=== PATIENT | male | born 1950 | race Caucasian/White ===

== ENCOUNTER 2019-04-05 11:41 | Emergency (ER) | payer MEDICARE, OTHER ==
[~2019-04-05] VITALS: Ht 167.6 cm; Wt 65.0 kg
[2019-04-05 11:52] VITALS: Ht 167.6 cm; Wt 65.0 kg
[2019-04-05] MEDS ORDERED: SOD CHLORIDE 0.9% 1,000 ML IV STA (11:58)
[2019-04-05] MEDS ORDERED: KETOROLAC 15 MG INJ IV STA (11:58)
[2019-04-05] MEDS ORDERED: LORAZEPAM 0.5 MG TAB PO ONE (12:00)
--- NOTE | 2019-04-05 12:07 | ERD ---
ER Documentation Chief Complaint Chief Complaint mid sternal chest pain started today HPI This is a 68-year-old man brought in by EMS from home with multiple complaints including sharp nonexertional nonradiating chest pain, palpitations, dizziness beginning at about 9 AM this morning. He states he has these symptoms about once per week for the last few years and states he feels very anxious. He denies suicidal homicidal ideation. He states he had echocardiogram about 5 to 6 months ago which was normal. Patient denies history of [place]. He has had no loss of consciousness, no fevers or chills, no vomiting or diarrhea, no headache or blurry vision. Patient was transported here by EMS without further complications ROS All systems reviewed and are negative except as per history of present illness. Medications Home Meds Active Scripts Ibuprofen* (Motrin*) 600 Mg Tab, 600 MG PO Q8 PRN for PAIN AND/OR INFLAMMATION, #30 TAB Prov:WILLIAMS NERI MD 04/05/19 Lorazepam* (Ativan*) 0.5 Mg Tablet, 0.5 MG PO Q8H PRN for ANXIETY, #10 TAB Prov:WILLIAMS NERI MD 04/05/19 Reported Medications Amlodipine Besylate* (Amlodipine Besylate*) 10 Mg Tablet, 1 TAB ORAL DAILY 04/05/19 Hydrochlorothiazide* (Hydrochlorothiazide*) 25 Mg Tab, 1 TAB ORAL DAILY 04/05/19 Ezetimibe (Ezetimibe) 10 Mg Tablet, 1 TAB ORAL QHS 04/05/19 Allergies Allergies: Coded Allergies: No Known Allergy (Unverified , 04/05/19) PMhx/Soc Hypertension FmHx Family History: No diabetes Physical Exam Vitals Vital Signs Date Temp Pulse Resp B/P (MAP) Pulse Ox O2 O2 Flow FiO2 Time Delivery Rate 04/05/19 97.8 65 18 147/80 98 11:52 (102) Physical Exam GENERAL: Well-developed, well-nourished, appears dehydrated, anxious, afebrile HEENT: Dry mucous membranes, pink conjunctiva, no cervical spine tenderness or step-off deformities, no goiter, no jaundice or icterus, extraocular movements intact without pain. No submandibular induration, and no pharyngeal erythema NEURO: Alert and oriented 3, cranial nerves II through XII intact bilaterally, pupils equal round reactive to light, no focal deficits or facial asymmetry, sensation intact distally Strength 5/5 in upper and lower extremities bilaterally CARDIAC: Regular rate and rhythm, no murmurs rubs or gallops LUNGS: Clear bilaterally no wheezing crackles or stridor EXTREMITIES: No clubbing cyanosis or edema, calves are bilaterally symmetrical, no Homans sign, no popliteal cord sign. Distal pulses equal and bilateral PSYCH: Normal affect without agitation or irritability Result Diagram: 04/05/19 1207 04/05/19 1207 Results 24 hrs Laboratory Tests Test 04/05/19 12:07 White Blood Count 10.1 10^3/ul Red Blood Count 5.18 10^6/ul Hemoglobin 15.3 g/dl Hematocrit 44.9 % Mean Corpuscular Volume 86.7 fl Mean Corpuscular Hemoglobin 29.5 pg Mean Corpuscular Hemoglobin Concent 34.1 g/dl Red Cell Distribution Width 14.2 % Platelet Count 275 10^3/UL Mean Platelet Volume 10.4 fl Immature Granulocytes % 0.300 % Neutrophils % 70.3 % Lymphocytes % 20.8 % Monocytes % 7.2 % Eosinophils % 1.1 % Basophils % 0.3 % Nucleated Red Blood Cells % 0.0 /100WBC Immature Granulocytes # 0.030 10^3/ul Neutrophils # 7.1 10^3/ul Lymphocytes # 2.1 10^3/ul Monocytes # 0.7 10^3/ul Eosinophils # 0.1 10^3/ul Basophils # 0.0 10^3/ul Nucleated Red Blood Cells # 0.0 10^3/ul Sodium Level 139 mmol/L Potassium Level 3.0 mmol/L Chloride Level 107 mmol/L Carbon Dioxide Level 25 mmol/L Anion Gap 7 Blood Urea Nitrogen 19 mg/dl Creatinine 1.09 mg/dl Est Glomerular Filtrat Rate mL/min > 60 mL/min Glucose Level 116 mg/dl Calcium Level 9.3 mg/dl Total Bilirubin 0.8 mg/dl Direct Bilirubin 0.00 mg/dl Indirect Bilirubin 0.8 mg/dl Aspartate Amino Transf (AST/SGOT) 17 IU/L Alanine Aminotransferase (ALT/SGPT) 18 IU/L Alkaline Phosphatase 60 IU/L Troponin I < 0.012 ng/ml Total Protein 7.3 g/dl Albumin 3.9 g/dl Globulin 3.40 g/dl Albumin/Globulin Ratio 1.14 Lipase 47 U/L Current Medications Medications Dose Sig/Ilan Start Time Status Last (Trade) Ordered Route PRN Stop Time Admin Dose Reason Admin Sodium 1,000 ml @ Q1H STAT 04/05/19 04/05/19 Chloride 1,000 mls/hr IV 11:58 12:31 04/05/19 12:57 Ketorolac 15 mg ONCE STAT 04/05/19 DC 04/05/19 Tromethamine IV 11:58 12:31 (Toradol) 04/05/19 12:00 Lorazepam 0.5 mg ONCE ONCE 04/05/19 DC 04/05/19 (Ativan) PO 12:00 12:31 04/05/19 12:01 Procedures/MDM IV line was established 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 Patient was afebrile EKG performed, read by me revealed a normal sinus rhythm at 68 bpm, normal axis, narrow QRS complex, no concerning ST elevations or depressions noted I administered 1 L normal saline IV, Toradol 15 mg IV, lorazepam 0.5 mg p.o. x1 CBC and electrolytes were normal, liver function tests were normal, troponin was negative Differential diagnoses considered, included but not limited to acute coronary syndrome, pulmonary embolism, aortic dissection, abdominal aortic aneurysm, sepsis, stroke, meningitis, encephalitis, pneumonia, appendicitis, cholecystitis, bowel obstruction, pyelonephritis, nephrolithiasis, cystitis, as well as metabolic, hematologic, and electrolyte abnormalities. As well as abscess, cellulitis, fractures, and dislocations. Patient feels much better at this time, and vital signs are normal, symptoms have improved. I did give strict instructions to return to the ED if symptoms continue or worsen, patient will otherwise follow-up with primary care physician. Patient understood instructions and agreed to plan. Disclaimer: Inadvertent spelling and grammatical errors are likely due to EHR/dictation software use and do not reflect on the overall quality of patient care. Also, please note that the electronic time recorded on this note does not necessarily reflect the actual time of the patient encounter. Departure Diagnosis: Primary Impression: Chest pain Chest pain type: unspecified Qualified Codes: R07.9 - Chest pain, unspecified Additional Impressions: Palpitations Acute anxiety Condition: WILLIAMS Roblero MD Apr 05, 2019 12:07
[2019-04-05] MEDS ORDERED: EZET10TA32 ORAL (12:27)
[2019-04-05] MEDS ORDERED: HYDR25TA6 ORAL (12:27)
[2019-04-05] MEDS ORDERED: AMLO-147 ORAL (12:27)
[2019-04-05] MEDS ORDERED: LORA-441 PO (12:39)
[2019-04-05] MEDS ORDERED: IBUP-1542 PO (12:39)
[2019-04-05 13:26] VITALS: BP 126/74; PULSE 59; RESP 16
== END 2019-04-05 13:29 | disposition home or self-care (01) ==
LOC: E/R 11:41
DX: R07.89 Other chest pain (principal); R00.2 Palpitations; F41.9 Anxiety disorder, unspecified
CPT/HCPCS: 36415; 80053; 83690; 84484; 85025; 96374; 99284; J1885; J7030